=== PATIENT | female | born 1995 | race Caucasian/White ===

== ENCOUNTER 2016-10-04 14:41 | Emergency (ER) | payer OTHER ==
[~2016-10-04] VITALS: Ht 165.1 cm; Wt 97.3 kg
[2016-10-04 14:44] VITALS: BP 125/83; PULSE 87; RESP 16; O2SAT 98
--- NOTE | 2016-10-04 15:39 | ED.REPORT ---
HPI-Psychiatric Illness Date of Service Oct 04, 2016 ED Provider: Jose Miguel Guerrero PA-C Dorothy is a 20-year-old female with history of anxiety presenting to the emergency department seeking medication refills. She reports taking buspirone and lorazepam. Complains of "near constant panic attacks" for the last month. States that she cannot get in to see a primary care provider for weeks. Reports that she recently moved here from [place], has history of Asperger's. Denies other symptoms. Presents with her sister. Nursing Notes Stated Complaint: ANXIETY, AND PANIC ATTACKS Chief Complaint: Psychiatric Complaint Nursing Notes Reviewed: Yes Allergies: Coded Allergies: No Known Allergies (Unverified , 10/04/16) Scheduled Buspirone (Buspirone) 5 Mg Tablet 5 MG PO DAILY Scheduled PRN hydrOXYzine Hcl (HydrOXYzine Hcl) 25 Mg Tablet 25 MG PO TID PRN PRN For Anxiety or Agitation General Time Seen by MD: 15:22 Chief Complaint Anxious Risk-Psychiatric Illness Suicide Risk Stratification RF Statements: Risk factors N/A Past Medical History Past Medical History Denies Review of Systems Review of Systems Note: Negative unless stated otherwise in history of present illness Physical Exam General: Well appearing, well developed, well nourished, no acute distress. Appears mildly anxious. Head: Atraumatic, normocephalic. Eyes: No scleral icterus or injection. No discharge. Vision grossly intact. ENT: Voice clear, hearing grossly intact. Respiratory: No respiratory distress, no increased work of breathing. Speaks in complete sentences. Skin: Warm and dry. Neurological: Grossly nonfocal. Psychological: alert and oriented. Speech appropriate, linear and logical. Behavior appropriate. Initial Vital Signs Vital Signs (First) Date Time Temp Pulse Resp B/P Pulse Ox O2 Delivery O2 Flow Rate FiO2 10/04/16 14:44 36.5 87 16 125/83 98 Room Air Initial VS: Vital signs normal Re-Eval/Medical Decision Med Decision/Clinical Course This patient recently moved to the region, does not have a primary care provider. Seeking refills of buspirone and lorazepam. Previously supplied by provider in [place]. Reports a one-month history of near constant panic attacks. Denies other complaints. Patient does appear somewhat anxious. Presents with a supportive sister. Offered to refill buspirone, but decline lorazepam. Offer her hydroxyzine which is accepted. Provided a list of mental health providers for the patient to contact. Also provided referral for primary care. Advised emergent return precautions. Patient verbalizes understanding of and consented to plan Discharge & Departure Impression: Primary Impression: Anxiety Disposition: Home Discharge Condition All VS Reviewed: Yes Condition: Stable Patient Instructions: Anxiety (ED) Additional Instructions: Evaluation in emergency department for medication refills includes a history and brief physical examination. I am happy to provide you a refill of your buspirone. Unfortunately, I am unable to refill your lorazepam here in the emergency department. I can offer you hydroxyzine, a different medication to treat anxiety. I have given you a list of local mental health providers. Please contact the ones that are highlighted to arrange to be seen as soon as possible. I have also given you a referral for primary care provider Returning to permit for any new or worsening symptoms including increased anxiety, thoughts of harming herself or others. Referrals: [facility] Provider for APC: Lydia Britt MD, Seth PA-C Oct 04, 2016 15:39
[2016-10-04] MEDS ORDERED: HYDR-656 PO (15:41)
[2016-10-04] MEDS ORDERED: BUSP5TAB3 PO (15:41)
== END 2016-10-04 16:17 | disposition home or self-care (01) ==
LOC: SED 14:41
DX: F41.9 Anxiety disorder, unspecified (principal)